=== PATIENT | male | born 1990 | race African-American/Black ===

== ENCOUNTER 2023-06-17 09:38 | Emergency (ER) | payer MEDICAID, OTHER ==
[~2023-06-17] VITALS: Ht 175.3 cm; Wt 69.0 kg
[2023-06-17 10:10] VITALS: BP 146/82; PULSE 95; RESP 18; O2SAT 95
[2023-06-17] MEDS ORDERED: ACETAMINOPHEN 500 MG TAB PO ONE (10:45)
[2023-06-17 10:49] VITALS: TEMP 97.6
[2023-06-17] MEDS ORDERED: SUMA50TA2 PO (11:15)
== END 2023-06-17 11:58 | disposition home or self-care (01) ==
LOC: ER 09:38
DX: G44.229 Chronic tension-type headache, not intractable (principal)
CPT/HCPCS: 70450

== ENCOUNTER 2023-10-11 21:03 | Emergency (ER) | payer MEDICAID ==
[~2023-10-11] VITALS: Ht 175.3 cm; Wt 72.6 kg
[~2023-10-11 21:03] MED LIST: SUMA50TA2 PO
[2023-10-11 21:56] VITALS: BP 118/85; PULSE 85; RESP 16; O2SAT 95
[2023-10-12] MEDS: diphenhdrAMINE HCL 50 MG/1 ML VL IM ONE (01:35)
[2023-10-12] MEDS: KETOROLAC TROMETH 60MG/2ML VIAL IM ONE (01:35)
[2023-10-12] MEDS: METOCLOPRAMIDE HCL 5MG/ml INJ 2ml VIAL IM ONE (01:35)
== END 2023-10-12 01:34 | disposition home or self-care (01) ==
LOC: EDBD 21:03 → ER 21:03
DX: G43.909 Migraine, unspecified, not intractable, without status migrainosus (principal); F41.9 Anxiety disorder, unspecified; Z88.8 Allergy status to other drugs, medicaments and biological substances; Z79.899 Other long term (current) drug therapy
CPT/HCPCS: 70450